=== PATIENT | male | born 1975 | race Caucasian/White ===

== ENCOUNTER 2020-12-29 07:18 | Emergency (ER) | payer SELFPAY ==
[~2020-12-29] VITALS: Ht 165.1 cm; Wt 81.6 kg
[2020-12-29 07:21] VITALS: BP 121/99
--- NOTE | 2020-12-29 07:22 | NUR ---
BIBA TAKEN TO BED 10
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
[2020-12-29] MEDS ORDERED: BLOOD GLUCOSE MONITORING 1 DEV DEV FS ONE (07:35)
[2020-12-29] MEDS ORDERED: ACETAMINOPHEN 325 MG TAB PO ONE (07:35)
--- NOTE | 2020-12-29 07:45 | NUR ---
CONNECTION WORKER AT PT BEDSIDE.
--- NOTE | 2020-12-29 09:57 | NUR ---
APPLIED ANKLE AIR SPLINT TO RIGHT ANKLE WITHOUT ANY ISSUES
[2020-12-29] MEDS ORDERED: IBUP-2213 PO (10:09)
[2020-12-29 10:16] VITALS: BP 121/99
--- NOTE | 2020-12-29 10:16 | NUR ---
Patient discharged with v/s stable. Written and verbal after care instructions given ANKLE SPRAIN and explained. Patient alert, oriented and verbalized understanding of instructions. Ambulatory with steady gait. All questions addressed prior to discharge. ID band removed. Patient advised to follow up with PMD. Rx of IBUPROFEN 600MG PO TID given. Patient educated on indication of medication including possible reaction and side effects. Opportunity to ask questions provided and answered.
== END 2020-12-29 10:16 | disposition home or self-care (01) ==
LOC: MED 07:18
DX: S93.401A Sprain of unspecified ligament of right ankle, initial encounter (principal); J45.909 Unspecified asthma, uncomplicated; W19.XXXA Unspecified fall, initial encounter; Y93.89 Activity, other specified; Y92.89 Other specified places as the place of occurrence of the external cause; Y99.8 Other external cause status
CPT/HCPCS: 29515; 73610; 73630; 73650; 99284